=== PATIENT | female | born 1965 | race Two or more races ===

== ENCOUNTER 2016-12-13 12:34 | Emergency (ER) | payer OTHER ==
[~2016-12-13 12:34] MED LIST: TYLOX1 CAP 5/50 DOB
[2016-12-13 12:35] LABS: INFLUENZA A NEG (NEG); INFLUENZA B NEG (NEG)
== END 2016-12-13 13:07 | disposition home or self-care (01) ==
LOC: CFTX 12:34
PROVIDERS: Nurse Practitioner
DX: J20.9 Acute bronchitis, unspecified (principal); J30.2 Other seasonal allergic rhinitis; R03.0 Elevated blood-pressure reading, without diagnosis of hypertension
CPT/HCPCS: 87651; 87804; 94640; 99283